=== PATIENT | female | born 1970 | race Caucasian/White ===

== ENCOUNTER 2020-06-12 18:33 | Emergency (ER) | payer BC ==
[~2020-06-12 18:33] MED LIST: CALCIUM600 MG PO; CYCLOBENZAPRINE5 MG PO; MULTIVITAMINS1 EAC1 PO; VITAMIN B-121000 MC3 PO; ZOLMITRIPTAN5 MG PO; [UNRECOGNIZED DRUG - OTHER] PO
[2020-06-12 19:32] LABS: RED BLOOD COUNT 4.93 M/UL (4.00-5.10); WHITE BLOOD COUNT 8.8 K/UL (4.5-11.0)
[2020-06-12 19:46] LABS: BUN/CREATININE RATIO 16 (0-10)
== END 2020-06-12 22:42 | disposition home or self-care (01) ==
LOC: ER1 18:33
PROVIDERS: Physician Assistant
DX: R07.89 Other chest pain (principal); R06.02 Shortness of breath; R53.83 Other fatigue; Z20.822 Contact with and (suspected) exposure to COVID-19; Z90.89 Acquired absence of other organs; Z90.710 Acquired absence of both cervix and uterus
CPT/HCPCS: 71045; 80053; 82550; 82553; 83874; 84484; 85025; 85379; 93005; 99285; U0002

== ENCOUNTER 2020-07-23 16:16 | Observation (INO) | payer BC ==
[~2020-07-23] VITALS: Ht 160 cm; Wt 56.7 kg
[2020-07-23 17:41] LABS: RED BLOOD COUNT 4.91 M/UL (4.00-5.10)
[2020-07-23 17:58] LABS: BUN/CREATININE RATIO 15 (0-10)
[2020-07-23] MEDS ORDERED: CEFUROXIME500 MG PO (19:17)
[2020-07-23] MEDS ORDERED: PYRIDIUM200 MG PO (19:17)
[2020-07-23] MEDS ORDERED: ONDANSETRON ODT4 MG SL (19:17)
[2020-07-24] MEDS ORDERED: ATIVAN 1MG TABLE1 MG PO (00:38)
[2020-07-24 02:59] LABS: RED BLOOD COUNT 4.66 M/UL (4.00-5.10)
[2020-07-25 04:53] LABS: BUN/CREATININE RATIO 20 (0-10)
[2020-07-25] MEDS ORDERED: KEFLEX CAP 250250 MG PO (11:08)
== END 2020-07-25 13:31 | disposition home or self-care (01) ==
LOC: ER1 16:16 → MED SURG 4 21:10 → CDU 21:10 → MED SURG 4 07-24 00:01
PROVIDERS: Internal Medicine; Physician Assistant; ADMIT Internal Medicine
DX: A41.9 Sepsis, unspecified organism (principal); N30.01 Acute cystitis with hematuria; F41.9 Anxiety disorder, unspecified; Z20.822 Contact with and (suspected) exposure to COVID-19; Z87.442 Personal history of urinary calculi; Z87.440 Personal history of urinary (tract) infections
CPT/HCPCS: 36415; 80048; 80053; 81001; 83605; 83690; 85025; 87040; 87077; 87086; 87186; 96374; 96375; 96376; 99285; G0378; J0696; J1200; J1885; J1956; J2060; J2765; J7030; U0002

== ENCOUNTER 2020-08-28 12:18 | Emergency (ER) | payer BC ==
[~2020-08-28 12:18] MED LIST changes: +ATIVAN 1MG TABLE1 MG PO; +CEFUROXIME500 MG PO; +KEFLEX CAP 250250 MG PO; +ONDANSETRON ODT4 MG SL; +PYRIDIUM200 MG PO
[2020-08-28 14:21] LABS: HEMOGLOBIN 16.3 gm/dl (12.3-15.3); RED BLOOD COUNT 5.33 M/UL (4.00-5.10); WHITE BLOOD COUNT 4.2 K/UL (4.5-11.0)
[2020-08-28 14:41] LABS: BUN/CREATININE RATIO 13 (0-10)
[2020-08-28] MEDS ORDERED: ATROVENT-HFA12.9 GM INH (16:41)
[2020-08-28] MEDS ORDERED: PHENERGAN 12.12.5 M1 PO (16:41)
[2020-08-28] MEDS ORDERED: DELSYM30 MG/5 ML PO (16:41)
[2020-08-28] MEDS ORDERED: OMNICEF 300 MG300 MG PO (16:41)
[2020-08-28] MEDS ORDERED: ZOFRAN4 MG PO (16:41)
== END 2020-08-28 16:58 | disposition home or self-care (01) ==
LOC: ER1 12:18
PROVIDERS: Physician Assistant Medical
DX: U07.1 COVID-19 (principal); N39.0 Urinary tract infection, site not specified; Z90.710 Acquired absence of both cervix and uterus; Z90.49 Acquired absence of other specified parts of digestive tract
CPT/HCPCS: 71045; 80053; 81001; 83605; 83690; 85025; 85379; 87040; 93005; 96374; 99284; J2405; J7030

== ENCOUNTER 2020-10-11 00:34 | Emergency (ER) | payer BC ==
[~2020-10-11 00:34] MED LIST changes: +ATROVENT-HFA12.9 GM INH; +DELSYM30 MG/5 ML PO; +OMNICEF 300 MG300 MG PO; +PHENERGAN 12.12.5 M1 PO; +ZOFRAN4 MG PO
== END 2020-10-11 04:00 | disposition home or self-care (01) ==
LOC: ER1 00:34
DX: N99.89 Other postprocedural complications and disorders of genitourinary system (principal); R33.9 Retention of urine, unspecified; Z90.710 Acquired absence of both cervix and uterus; Z90.89 Acquired absence of other organs
CPT/HCPCS: 51702; 81001; 87086; 99284